=== PATIENT | male | born 2005 | race Caucasian/White ===

== ENCOUNTER → 2023-12-15 | Outpatient (CLI) | payer OTHER ==
[2023-12-15 11:57] LABS: BASOPHILS ABSOLUTE AUTO 0.05 K/mm3 (0.00-0.23); BASOPHILS PERCENT AUTO 1 % (0-2); EOSINOPHILS ABSOLUTE AUTO 0.14 K/mm3 (0.00-0.68); EOSINOPHILS PERCENT AUTO 2 % (0-6); Hematocrit 43.6 % (37.0-53.0); Hemoglobin 14.8 g/dL (13.5-17.5); IMMATURE GRAN ABSOLUTE AUTO 0.02 K/mm3 (0.00-0.10); IMMATURE GRAN PERCENT AUTO 0 % (0-1); LYMPHOCYTES ABSOLUTE AUTO 2.16 K/mm3 (0.84-5.20); LYMPHOCYTES PERCENT AUTO 32 % (21-46); MONOCYTES ABSOLUTE AUTO 0.54 K/mm3 (0.16-1.47); MONOCYTES PERCENT AUTO 8 % (4-13); Mean Corpuscular HGB 30.7 pg (26.0-34.0); Mean Corpuscular HGB Conc 33.9 g/dL (31.5-36.5); Mean Corpuscular Volume 91 fL (80-100); Mean Platelet Volume 9.5 fL (9.1-12.4); NEUTROPHILS ABSOLUTE AUTO 3.84 K/mm3 (1.96-9.15); NEUTROPHILS PERCENT AUTO 57 % (41-73); Platelet Count 301 K/mm3 (150-400); RDW Coefficient Variation 11.3 % (11.7-14.2); RDW Standard Deviation 37.5 fL (35.1-46.3); Red Blood Cell Count 4.82 M/mm3 (4.30-5.90); White Blood Cell Count 6.75 K/mm3 (4.00-11.30)
[2023-12-16 09:11] LABS: A/G RATIO 1.8 (1.2-2.2); BILIRUBIN, TOTAL 0.7 mg/dL (0.0-1.2); CALCIUM, SERUM 10.4 mg/dL (8.7-10.2); CREATININE, SERUM 0.88 mg/dL (0.76-1.27); GLOBULIN, TOTAL 2.9 g/dL (1.5-4.5); POTASSIUM, SERUM 4.3 mmol/L (3.5-5.2)
== END ==
LOC: LAB SHORT 10:51 → LAB 10:51
PROVIDERS: Family Medicine
DX: Z00.01 Encounter for general adult medical examination with abnormal findings (principal); R63.4 Abnormal weight loss
CPT/HCPCS: 80053; 84443; 85025

== ENCOUNTER 2024-04-02 21:38 | Emergency (ER) | payer OTHER ==
[~2024-04-02] VITALS: Ht 182.9 cm; Wt 68.0 kg
[2024-04-02 21:43] VITALS: BP 179/100
== END 2024-04-03 00:03 | disposition home or self-care (01) ==
LOC: ER 21:38
DX: M53.3 Sacrococcygeal disorders, not elsewhere classified (principal)

== ENCOUNTER 2024-11-11 22:12 | Emergency (ER) | payer OTHER ==
[~2024-11-11] VITALS: Ht 182.9 cm; Wt 67.1 kg
[~2024-11-11 22:12] MED LIST: DELTASONE20 MG PO; GABA100; HYDR1TAB94 PO; LIDO700A20 TOP
[2024-11-11 22:47] VITALS: BP 154/102
[2024-11-11] MEDS ORDERED: OxyCODONE 5 mg/Acetamin 325 mg TABLET PO ONE (23:20)
[2024-11-11] MEDS ORDERED: RX Prepack 6 Tabs Oxycodone 5mg UD ONE (23:20)
== END 2024-11-11 23:36 | disposition home or self-care (01) ==
LOC: ER 22:12
DX: M25.511 Pain in right shoulder (principal)
CPT/HCPCS: 73030; 99283-25; A9270

== ENCOUNTER → 2024-12-26 | Outpatient (CLI) | payer OTHER ==
[2024-12-26 19:13] LABS: BASOPHILS ABSOLUTE AUTO 0.04 K/mm3 (0.00-0.23); BASOPHILS PERCENT AUTO 1 % (0-2); EOSINOPHILS ABSOLUTE AUTO 0.15 K/mm3 (0.00-0.68); EOSINOPHILS PERCENT AUTO 2 % (0-6); Hematocrit 41.9 % (37.0-53.0); Hemoglobin 14.4 g/dL (13.5-17.5); IMMATURE GRAN ABSOLUTE AUTO 0.01 K/mm3 (0.00-0.10); IMMATURE GRAN PERCENT AUTO 0 % (0-1); LYMPHOCYTES ABSOLUTE AUTO 1.72 K/mm3 (0.84-5.20); LYMPHOCYTES PERCENT AUTO 24 % (21-46); MONOCYTES PERCENT AUTO 7 % (4-13); Mean Corpuscular HGB 31.6 pg (26.0-34.0); Mean Corpuscular HGB Conc 34.4 g/dL (31.5-36.5); Mean Corpuscular Volume 92 fL (80-100); Mean Platelet Volume 9.3 fL (9.1-12.4); NEUTROPHILS PERCENT AUTO 67 % (41-73); Platelet Count 344 K/mm3 (150-400); RDW Coefficient Variation 11.7 % (11.7-14.2); RDW Standard Deviation 39.8 fL (35.1-46.3); Red Blood Cell Count 4.55 M/mm3 (4.30-5.90); White Blood Cell Count 7.22 K/mm3 (4.00-11.30)
[2024-12-26 20:32] LABS: Albumin, Blood 4.9 g/dL (3.4-5.0); Albumin/Globulin Ratio 1.3 (0.8-1.8); Bilirubin, Total 0.6 mg/dL (0.1-1.0); Bun/Creatinine Ratio 13.9 (12.0-20.0); Calcium, Blood 9.9 mg/dL (8.5-10.1); Creatinine, Blood 0.79 mg/dL (0.60-1.20); Globulin, Blood 3.9 g/dL (2.2-4.0); Potassium, Blood 3.8 mmol/L (3.5-5.5); Total Protein, Blood 8.8 g/dL (6.4-8.2); Uric Acid, Blood 5.6 mg/dL (3.5-7.2)
[2024-12-29 14:29] LABS: B. BURGDORFERI IGG IMMUNOBLOT Positive (Negative); B. BURGDORFERI IGM IMMUNOBLOT Negative (Negative)
== END | disposition home or self-care (01) ==
LOC: LAB 17:12 → LAB SHORT 17:12
PROVIDERS: Family Medicine
DX: M33.22 Polymyositis with myopathy (principal)
CPT/HCPCS: 80053; 82550; 84550; 85025; 85651; 86140; 86617

== ENCOUNTER → 2025-05-18 | Outpatient (CLI) | payer OTHER ==
[2025-05-23 10:14] LABS: CALPROTECTIN,FECAL 2760 ug/g (<=49)
== END ==
LOC: LAB SHORT 12:28 → LAB 12:28
PROVIDERS: Family Medicine
DX: K92.2 Gastrointestinal hemorrhage, unspecified (principal)
CPT/HCPCS: 83993

== ENCOUNTER 2025-06-04 08:31 | Day surgery (SDC) | payer OTHER ==
[~2025-06-04] VITALS: Ht 182.9 cm; Wt 65.0 kg
--- NOTE | 2025-06-04 09:12 | NUR ---
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
[2025-06-04] MEDS ORDERED: AZIT500 (09:23)
[2025-06-04] MEDS ORDERED: AMOX500 (09:24)
[2025-06-04 11:00] VITALS: BP 111/76
--- NOTE | 2025-06-04 11:00 | NUR ---
06/04/[address] CHOSE NOT TO SCOPE TO CECUM. RDS
== END 2025-06-04 11:03 | disposition home or self-care (01) ==
LOC: ORSCSDS 08:31
PROVIDERS: Specialist
PROC: 0DBN8ZX Excision of Sigmoid Colon, Via Natural or Artificial Opening Endoscopic, Diagnostic (ICD-10-PCS; principal; 2025-06-04 09:45)
DX: K62.5 Hemorrhage of anus and rectum (principal); K51.90 Ulcerative colitis, unspecified, without complications; A69.20 Lyme disease, unspecified
CPT/HCPCS: 88305; J2704; J7120

== ENCOUNTER 2025-06-08 09:28 | Observation (INO) | payer OTHER ==
[~2025-06-08] VITALS: Ht 182.9 cm; Wt 65.8 kg
[~2025-06-08 09:28] MED LIST changes: +AMOX500 PO; +AZIT500 PO
[2025-06-08] MEDS ORDERED: NS 1,000 ML IV SCH ×2 (09:55→10:25)
[2025-06-08 10:15] LABS: BASOPHILS ABSOLUTE AUTO 0.07 K/mm3 (0.00-0.23); BASOPHILS PERCENT AUTO 1 % (0-2); EOSINOPHILS ABSOLUTE AUTO 0.26 K/mm3 (0.00-0.68); EOSINOPHILS PERCENT AUTO 3 % (0-6); Hematocrit 39.7 % (37.0-53.0); Hemoglobin 13.7 g/dL (13.5-17.5); IMMATURE GRAN ABSOLUTE AUTO 0.01 K/mm3 (0.00-0.10); IMMATURE GRAN PERCENT AUTO 0 % (0-1); LYMPHOCYTES ABSOLUTE AUTO 2.10 K/mm3 (0.84-5.20); LYMPHOCYTES PERCENT AUTO 25 % (21-46); MONOCYTES ABSOLUTE AUTO 0.80 K/mm3 (0.16-1.47); MONOCYTES PERCENT AUTO 9 % (4-13); Mean Corpuscular HGB Conc 34.5 g/dL (31.5-36.5); Mean Corpuscular Volume 91 fL (80-100); NEUTROPHILS ABSOLUTE AUTO 5.27 K/mm3 (1.96-9.15); NEUTROPHILS PERCENT AUTO 62 % (41-73); NRBC ABSOLUTE 0.00 K/mm3 (0.00-0.02); NRBC Auto 0.0 /100 WBC (0.0-0.2); Platelet Count 314 K/mm3 (150-400); RDW Coefficient Variation 11.7 % (11.7-14.2); RDW Standard Deviation 39.3 fL (35.1-46.3)
[2025-06-08] MEDS ORDERED: Ondansetron HCl 2 MG / ML 2ML Vial IV ONE (10:25)
[2025-06-08] MEDS ORDERED: FentaNYL Citrate 50 MCG/ML 2 ML Injection IV ONE (10:25)
[2025-06-08 10:47] LABS: Alanine Aminotransfer (ALT/SGP 33 U/L (12-78); Albumin, Blood 4.4 g/dL (3.4-5.0); Albumin/Globulin Ratio 1.1 (0.8-1.8); Anion Gap 7 mmol/L (3-11); Aspartate Aminotrans (AST/SGOT 21 U/L (12-37); Bilirubin, Total 0.9 mg/dL (0.1-1.0); Blood Urea Nitrogen 11 mg/dL (8-24); C-REACTIVE PROTEIN, EXT RANGE <0.290 mg/dL (0.000-0.300); CO2, Blood 29 mmol/L (21-32); Calcium, Blood 9.2 mg/dL (8.5-10.1); Chloride, Blood 107 mmol/L (98-108); Creatinine, Blood 0.81 mg/dL (0.60-1.20); Ferritin, Serum 75 ng/mL (26-388); Globulin, Blood 4.0 g/dL (2.2-4.0); Glucose, Blood 91 mg/dL (70-99); Potassium, Blood 3.6 mmol/L (3.5-5.5); Sodium, Blood 139 mmol/L (136-145); Total Iron Binding Capacity 329 ug/dL (250-450); Total Protein, Blood 8.4 g/dL (6.4-8.2)
[2025-06-08 11:46] LABS: Source, Urine Clean Catch
[2025-06-08 11:49] LABS: Bilirubin, Urine Neg (Neg); Color, Urine Yellow (P-Yellow); Glucose Qualitative, Urine Neg (Neg); Ketones, Urine Neg (Neg); Leukocyte Esterase, Urine Neg (Neg); Protein, Urine Neg (Neg); Specific Gravity, Urine 1.005 (1.003-1.022); Urobilinogen, Urine NORM (Normal)
[2025-06-08 15:32] VITALS: BP 120/74
[2025-06-08] MEDS ORDERED: Ketorolac Tromethamine 30mg Vial IV PRN (16:35)
--- NOTE | 2025-06-08 17:50 | NUR ---
ADMIT - LATE ENTRY: PT ADMITTED TO MEDICAL FLOOR @ 1530 VIA WHEELCHAIR FROM ER. DR. VEGA IN TO SEE PT THIS EVENING EXPLAINING PLAN TO PT. PLAN AT THIS TIME IS FOR PO STEROIDS, PAIN MANAGEMENT, AND MRI OF LEFT HIP. PT PLEASANT AND COOPERATIVE WITH CARE. A&O X4. MRI FORM FILLED OUT AND FAXED. IV IN RAC FLUSHES WELL AND SALINE LOCKED. CALL LIGHT IN REACH. BED IN LOWEST POSITION.
[2025-06-08 19:18] VITALS: BP 116/82
[2025-06-09 03:10] VITALS: BP 119/67
[2025-06-09 05:13] LABS: BASOPHILS ABSOLUTE AUTO 0.03 K/mm3 (0.00-0.23); BASOPHILS PERCENT AUTO 0 % (0-2); EOSINOPHILS ABSOLUTE AUTO 0.03 K/mm3 (0.00-0.68); EOSINOPHILS PERCENT AUTO 0 % (0-6); Hematocrit 38.0 % (37.0-53.0); Hemoglobin 13.1 g/dL (13.5-17.5); IMMATURE GRAN ABSOLUTE AUTO 0.02 K/mm3 (0.00-0.10); IMMATURE GRAN PERCENT AUTO 0 % (0-1); LYMPHOCYTES ABSOLUTE AUTO 1.36 K/mm3 (0.84-5.20); LYMPHOCYTES PERCENT AUTO 13 % (21-46); MONOCYTES ABSOLUTE AUTO 0.66 K/mm3 (0.16-1.47); MONOCYTES PERCENT AUTO 6 % (4-13); Mean Corpuscular HGB Conc 34.5 g/dL (31.5-36.5); Mean Corpuscular Volume 91 fL (80-100); NEUTROPHILS ABSOLUTE AUTO 8.34 K/mm3 (1.96-9.15); NEUTROPHILS PERCENT AUTO 80 % (41-73); NRBC ABSOLUTE 0.00 K/mm3 (0.00-0.02); NRBC Auto 0.0 /100 WBC (0.0-0.2); Platelet Count 291 K/mm3 (150-400); RDW Coefficient Variation 11.6 % (11.7-14.2); RDW Standard Deviation 38.4 fL (35.1-46.3)
[2025-06-09 06:16] LABS: Alanine Aminotransfer (ALT/SGP 29.0 U/L (12-78); Albumin, Blood 3.8 g/dL (3.4-5.0); Albumin/Globulin Ratio 1.1 (0.8-1.8); Anion Gap 6.0 mmol/L (3-11); Aspartate Aminotrans (AST/SGOT 18.0 U/L (12-37); Bilirubin, Total 0.5 mg/dL (0.1-1.0); Blood Urea Nitrogen 14.0 mg/dL (8-24); CO2, Blood 26.0 mmol/L (21-32); Calcium, Blood 9.3 mg/dL (8.5-10.1); Chloride, Blood 110.0 mmol/L (98-108); Creatinine, Blood 0.73 mg/dL (0.60-1.20); Globulin, Blood 3.6 g/dL (2.2-4.0); Glucose, Blood 118.0 mg/dL (70-99); Potassium, Blood 4.0 mmol/L (3.5-5.5); Sodium, Blood 138.0 mmol/L (136-145); Total Protein, Blood 7.4 g/dL (6.4-8.2)
[2025-06-09 07:15] VITALS: BP 117/63
[2025-06-09 11:15] LABS: Campylobacter Sp Not Detected (NOT DETECT)
[2025-06-09 11:16] LABS: E. Coli O157 Not Detected (NOT DETECT); Enteroaggregative E. coli-EAEC Not Detected (NOT DETECT); Enteropathogenic E. coli-EPEC Not Detected (NOT DETECT); Enterotoxigenic E. coli-ETEC Not Detected (NOT DETECT); Salmonella Sp Not Detected (NOT DETECT); Shiga Toxin-prod E. coli-STEC Not Detected (NOT DETECT); Shigella/Enteroin E. coli-EIEC Not Detected (NOT DETECT); Vibrio Sp Not Detected (NOT DETECT)
[2025-06-09] MEDS ORDERED: Prednisone10 MG PO (13:06)
[2025-06-09] MEDS ORDERED: Acetaminophen650 M1 PO (13:15)
--- NOTE | 2025-06-09 13:40 | NUR ---
DISCHARGE REVIEWED WITH PT. HE VERBALIZED UNDERSTANDING MEDS AND INSTRUCTIONS. IV PULLED BY AIDE. NO TELE. PT TO DISCHARGE WHEN FAMILY HERE.
--- NOTE | 2025-06-09 14:19 | NUR ---
PT DISCHARGED AMBULATORY WITH FATHER
--- NOTE | 2025-06-09 14:39 | NUR ---
PATIENT LEFT DISCHARGE PACKET IN ROOM UPON LEAVING. PACKET AT ACC DESK. CALLED BUT PT'S LISTED PHONE NUMBER DOES NOT IDENTIFY PATIENT AND MESSAGE WAS NOT LEFT.
[2025-06-10] MEDS ORDERED: Robaxin750 MG PO (11:44)
[2025-06-10] MEDS ORDERED: OXAYDO5 M1 PO (11:44)
[2025-06-10] MEDS ORDERED: Voltaren100 GM TOP (11:44)
[2025-06-11 05:00] LABS: MYELOPEROXIDASE (MPO) AB,IGG 0 AU/mL (0-19); SERINE PROTEINASE 3 PR3 AB,IGG 6 AU/mL (0-19)
[2025-06-12 15:14] LABS: CALPROTECTIN,FECAL >3000 ug/g (<=49)
== END 2025-06-09 14:29 | disposition home or self-care (01) ==
LOC: ER 09:28 → MEDS 09:29
PROVIDERS: Emergency Medicine; Student in an Organized Health Care Education/Training Program; ADMIT Hospitalist
DX: K51.90 Ulcerative colitis, unspecified, without complications (principal); M25.552 Pain in left hip; A69.20 Lyme disease, unspecified; Z79.2 Long term (current) use of antibiotics
CPT/HCPCS: 36415; 73502; 74177; 80053; 81003; 82728; 83516; 83540; 83550; 83690; 83993; 85025; 85651; 86140; 87507; 96360; 96361; 96374; 99285-25; A9270; G0378; J1885; J2919; J7030; J7512; Q9967

== ENCOUNTER 2025-06-10 10:41 | Emergency (ER) | payer OTHER ==
[~2025-06-10] VITALS: Ht 182.9 cm; Wt 66.7 kg
[~2025-06-10 10:41] MED LIST changes: +Acetaminophen650 M1 PO; +Prednisone10 MG PO
[2025-06-10 10:49] VITALS: BP 151/78
[2025-06-10] MEDS ORDERED: Voltaren100 GM TOP (11:44)
[2025-06-10] MEDS ORDERED: OXAYDO5 M1 PO (11:44)
[2025-06-10] MEDS ORDERED: Robaxin750 MG PO (11:44)
== END 2025-06-10 11:50 | disposition home or self-care (01) ==
LOC: ER 10:41
DX: M79.652 Pain in left thigh (principal); Z87.19 Personal history of other diseases of the digestive system; Z79.52 Long term (current) use of systemic steroids
CPT/HCPCS: 99283; A9270

== ENCOUNTER 2025-10-10 10:56 | Day surgery (SDC) | payer OTHER ==
[~2025-10-10] VITALS: Ht 182.9 cm; Wt 65.7 kg
[~2025-10-10 10:56] MED LIST changes: +OXAYDO5 M1 PO; +Robaxin750 MG PO; +Voltaren100 GM TOP
[2025-10-10] MEDS ORDERED: MESALAMINE (11:49)
[2025-10-10] MEDS ORDERED: Midazolam HCL 1 MG/ML 5MLVIAL ONE (12:57)
[2025-10-10 14:00] VITALS: BP 117/67
[2025-10-10 15:33] LABS: Campylobacter Sp Not Detected (NOT DETECT); E. Coli O157 Not Detected (NOT DETECT); Enteroaggregative E. coli-EAEC Not Detected (NOT DETECT); Enteropathogenic E. coli-EPEC Not Detected (NOT DETECT); Enterotoxigenic E. coli-ETEC Not Detected (NOT DETECT); Salmonella Sp Not Detected (NOT DETECT); Shiga Toxin-prod E. coli-STEC Not Detected (NOT DETECT); Shigella/Enteroin E. coli-EIEC Not Detected (NOT DETECT); Vibrio Sp Not Detected (NOT DETECT)
[2025-10-12 16:05] LABS: CALPROTECTIN,FECAL 961 ug/g (<=49)
== END 2025-10-10 14:27 | disposition home or self-care (01) ==
LOC: ORSCSDS 10:56
PROVIDERS: Internal Medicine Gastroenterology
DX: K51.90 Ulcerative colitis, unspecified, without complications (principal); K62.1 Rectal polyp; K62.5 Hemorrhage of anus and rectum; A69.20 Lyme disease, unspecified; Z79.899 Other long term (current) drug therapy
CPT/HCPCS: 83993; 87507; 88305; J2250; J2704; J7120